=== PATIENT | male | born 2000 | race Caucasian/White ===

== ENCOUNTER → 2018-08-10 | Emergency (ER) | payer OTHER ==
[~2018-08-10] VITALS: Ht 182.9 cm; Wt 81.7 kg
== END ==
LOC: ED 20:23
PROC: 0YQFXZZ Repair Right Knee Region, External Approach (ICD-10-PCS; principal; 2018-08-10)
DX: S81.011A Laceration without foreign body, right knee, initial encounter (principal); W22.8XXA Striking against or struck by other objects, initial encounter
CPT/HCPCS: 12001; 73560; 90471; 90715; 99283-25